=== PATIENT | female | born 1980 | race Caucasian/White ===

== ENCOUNTER → 2021-01-10 | Outpatient (CLI) | payer BC ==
--- NOTE | 2021-01-11 07:02 | CT ---
EXAMINATION TYPE: CT chest w con DATE OF EXAM: 01/10/2021 COMPARISON: Chest x-ray September 01, 2016 HISTORY: h/o covid and sob CT DLP: 629 mGycm. Automated Exposure Control for Dose Reduction was Utilized. TECHNIQUE: CT scan of the thorax is performed following with IV Contrast, patient injected with 100 mL of Isovue 300. FINDINGS: LUNGS: There is [id number] bibasilar linear scarring and/or atelectasis. No suspicious focal co nsolidation. No pleural effusion or pneumothorax seen bilaterally. The tracheobronchial tree is thomas nt. MEDIASTINUM: There are no greater than 1 cm hilar or mediastinal lymph nodes. No cardiomegaly or pe ricardial effusion is seen. OTHER: Prominent right and anterior spurring at T11-T12 level. IMPRESSION: Mild to moderate bibasilar linear scarring and/or atelectasis otherwise lungs are clear.
== END | disposition home or self-care (01) ==
LOC: RADCTMAIN 17:23
PROVIDERS: ATTEND Family Medicine
DX: J98.4 Other disorders of lung (principal); Z86.16 Personal history of COVID-19
CPT/HCPCS: 71260; Q9967